=== PATIENT | male | born 1995 | race Caucasian/White ===

== ENCOUNTER 2018-01-18 09:52 | Emergency (ER) | payer OTHER ==
[~2018-01-18] VITALS: Ht 193 cm; Wt 68.0 kg
[~2018-01-18 09:52] MED LIST: KEFLEX500 MG PO; POLYSPORIN OINT15 GM TP
[2018-01-18 10:36] LABS: ABSOLUTE EOSINOPHILS 0.3 thou/uL (0.0-0.7); ABSOLUTE MONOCYTES 0.4 thou/uL (0.0-1.2); ABSOLUTE NEUTROPHILS 5.1 thou/uL (1.6-8.1); BASOPHILS 0.6 %; EOSINOPHILS 4.6 %; HEMATOCRIT 44.2 % (42.0-52.0); HEMOGLOBIN 15.3 gm/dL (14.0-18.0); MCH 32.2 pg (26.0-34.0); MCHC 34.7 g/dL (28.0-37.0); MCV 92.7 fL (80.0-100.0); MPV 7.4 fl. (7.2-11.1); NUCLEATED RBCS 0 /100WBC; PLATELET COUNT* 154 thou/uL (150-400); POLYS 74.8 %; RBC 4.76 mil/uL (4.50-6.00); RDW-CV 12.4 % (10.5-14.5); WBC 6.9 thou/uL (4.0-11.0)
[2018-01-18 10:43] LABS: ANION GAP 5 mmol/L (7-16); BUN 15 mg/dL (7-18); CALCIUM 8.5 mg/dL (8.5-10.1); CHLORIDE 105 mmol/L (98-107); CO2 30 mmol/L (21-32); CREATININE 0.9 mg/dL (0.6-1.3); GLUCOSE 89 mg/dL (70-99); POTASSIUM 4.1 mmol/L (3.5-5.1); SODIUM 140 mmol/L (136-145)
[2018-01-18 10:51] LABS: ALBUMIN 3.6 g/dL (3.4-5.0); ALKALINE PHOSPHATASE 64 U/L (46-116); SGOT 29 U/L (15-37); SGPT 42 U/L (30-65); TOTAL BILIRUBIN 1.5 mg/dL (<0.1-1.0); TOTAL PROTEIN 6.8 g/dL (6.4-8.2); TROPONIN-I LEVEL <0.06 ng/mL (<0.06)
[2018-01-18 11:28] VITALS: BP 124/86
--- NOTE | 2018-01-18 15:33 | EKG ---
[place] [address] ELECTROCARDIOGRAM REPORT Name: DELIAJOSY Anjelica Room: [facility]#: [id number] Admission: 01/18/18 Attend Phys: Discharge: 01/18/18 Date of : [birth year] Report #: [id number] THIS REPORT FOR: //name// [facility] ED Test Date: 2018-01-18 Test Time: 10:01:24 Pat Name: JOSY LIN Department: Room: Gender: Housesmith: Annel DICKSON : 1995 Requested By: Leah Flores Order Number: [id number] MD: Chris Paul Measurements Intervals [place] Rate: 98 P: -81 [place]: 165 QRS: 103 QRSD: 95 T: 52 QT: 325 QTc: 415 Interpretive Statements Ectopic atrial rhythm Incomplete right bundle-branch block No previous ECG available for comparison Electronically Signed On 01-18-2018 15:33:27 CDT by Chris Paul [email or web address] <ELECTRONICALLY SIGNED> By: Chris Paul MD, [facility] 01/18/18 1533 1001 1001 Chris Paul MD, FACC /EPI
== END 2018-01-18 11:28 | disposition home or self-care (01) ==
LOC: M.ERS 09:52
PROVIDERS: Nurse Practitioner Family
DX: R07.89 Other chest pain (principal); R74.8 Abnormal levels of other serum enzymes; F17.210 Nicotine dependence, cigarettes, uncomplicated